=== PATIENT | male | born 2000 ===

== ENCOUNTER 2021-03-04 04:18 | Observation (INO) ==
[2021-03-04] MEDS ORDERED: SODIUM CHLORIDE 0.9% 1000ML 1,000 ML IV STA (04:44)
[2021-03-04] MEDS ORDERED: MoRPHine SULFATE 4 MG/ML 1 ML CARP\\VIAL IV STA ×2 (04:44→05:39)
[2021-03-04] MEDS ORDERED: ONDANSETRON INJ 2 MG/ML 2 ML VIAL IV STA (04:44)
[2021-03-04 05:27] LABS: Basophils # (auto) 0.02 K/uL (0-0.2); Basophils % (auto) 0.1 %; Eosinophils # (auto) 0.02 K/uL (0-0.5); Eosinophils % (auto) 0.1 %; Hematocrit (blood only) 42.4 % (42-52); Hemoglobin 14.7 g/dL (14.0-18.0); Immature Granulocytes # (auto) 0.05 K/uL (0.00-0.02); Immature Granulocytes % (auto) 0.3 %; Lymphocytes # (auto) 0.92 K/uL (1.2-3.4); Lymphocytes % (auto) 5.6 %; Mean Corpuscular Hemoglobin 28.8 pg (25-34); Mean Corpuscular Hgb Conc 34.7 g/dL (32-36); Mean Platelet Volume 11.2 fL (7.4-10.4); Monocytes # (auto) 0.99 K/uL (0.11-0.59); Neutrophils # (auto) 14.56 K/uL (1.4-6.5); Neutrophils % (auto) 87.9 %; Platelet Count 313 K/uL (130-400); RDW Coefficient of Variation 13.1 % (11.5-14.5); RDW Standard Deviation 39.7 fL (36.4-46.3); Red Blood Count 5.11 M/uL (4.7-6.1); White Blood Count 16.56 K/uL (4.8-10.8)
[2021-03-04 05:54] LABS: Albumin Level 4.5 gm/dl (3.4-5.0); BUN Creatinine Ratio 13.1 (10-20); Calcium 9.2 mg/dl (8.5-10.1); Creatinine Clr Calc Pharmacy 127.6 ml/min; Est GFR (African American) 147.1 ml/min; Est GFR (Non-African American) 126.9 ml/min; Potassium 3.2 mmol/L (3.5-5.1)
[2021-03-04 05:57] LABS: Albumin Globulin Ratio 1.5 (0.9-2); Bilirubin,Total 0.6 mg/dl (0.2-1); Globulin 3.1 gm/dl (2.5-4.0); Total Protein 7.6 gm/dl (6.4-8.2)
[2021-03-04] MEDS ORDERED: OPTIRAY 320 100ml IV ONE (07:17)
--- NOTE | 2021-03-04 07:18 | Emergency Department Note ---
ED Visit Note ED NOTE: Received this patient in signout from Earlene Casanova PA-C. Briefly patient is a 20-year-old male who presents the emergency department for evaluation of periumbilical/right lower quadrant abdominal pain. At change of shift, CT scan of the abdomen and pelvis with contrast was pending. Laboratory studies noted an elevated white count at 16,500 with left shift and bandemia. Potassium slightly low at 3.2, remaining electrolytes are within normal limits. Transaminases are not elevated. Lipase is within normal limits. Urine microscopy is unremarkable. Patient had good relief of his pain with IV morphine. CT scan of the abdomen and pelvis with IV and oral contrast notes the appendix to be dilated measuring 1.5 cm, fluid-filled with thickening of the wall and moderate periappendiceal inflammation. No free air or abscess. No evidence of bowel obstruction. CT scan findings were discussed with the patient. Covid swab was ordered. Consultation was placed with general surgery. Patient was reviewed with Nate Paige PA-C. Please refer to his surgical consultation for further information. Patient will go to the OR later this morning for appendectomy.
--- NOTE | 2021-03-04 07:26 | Emergency Department Note ---
History of Present Illness General Chief complaint: Abdominal Pain Stated complaint: SEVERE STOMACH PAIN Time Seen by Provider: 03/04/21 04:36 History of Present Illness Provider complaint: abdominal pain Maximum Pain Intensity: 6 This 20-year-old male patient presents to the emergency department today for evaluation of abdominal pain which began at approximately midnight. The patient states he has been having difficulty getting comfortable. The pain is assoc iated with nausea and vomiting. No diarrhea or constipation. No dysuria, urinary frequency, urinary hesitancy. He has had chills but no fever. Patient denies history of similar symptoms in the past. He denies of abdominal surgeries. Patient took some Pepto-Bismol but vomited it up. Past Med/Surg History Medical History No pertinent past medical history Social History Smoking Status: Never smoker Feels Safe at Home: Yes Review of Systems A total of 10 systems reviewed and were otherwise negative Physical Exam Vital Signs Vital Signs - 24 hr 03/04/21 04:21 03/04/21 05:00 03/04/21 07:03 Temperature 36.8 C Temperature Source Temporal Artery Scan Pulse Rate 62 58 L Pulse Rate [Apical] 82 Pulse Rhythm [Apical] Regular Pulse Strength [Apical] Normal Respiratory Rate 20 16 16 Respiratory Effort / Characteristics Non-Labored Spontaneous Respiratory Depth Normal Respiratory Pattern Regular Blood Pressure 128/65 Blood Pressure [Right Arm] 133/88 Blood Pressure Mean 86 Blood Pressure Mean [Right Arm] 103 Blood Pressure Position [Right Arm] Semi-fowlers Pulse Oximetry 99 98 98 Oxygen Delivery Method Room Air Room Air Room Air Sepsis Recent Fever Within 48 Hours No Sepsis New/Unexplained Change in Mental Status N/A Sepsis Action Taken by Nursing No Action Required VITALS: Vitals are noted on the nurse's note and reviewed by myself. Vital signs stable. GENERAL: This is a 20-year-old male, in no acute distress, nondiaphoretic, well- developed well-nourished. SKIN: The skin was without rashes, erythema, edema, or bruising. There is no tenting of the skin. Capillary refill less than 2 seconds. HEAD: Normocephalic atraumatic. EYES: Conjunctivae without injection, sclerae without icterus. NECK: Supple without nuchal rigidity. No lymphadenopathy. Cervical spine is nontender. No JVD. HEART: Regular rate and rhythm without murmurs gallops or rubs. LUNGS: Clear to auscultation bilaterally without wheezes, rales or rhonchi. No retractions or accessory muscle use. ABDOMEN: Positive bowel sounds x 4. Right lower quadrant tenderness to palpation over McBurney's point. Abdomen is otherwise soft, nontender, without masses or organomegaly. Hardy sign negative. No guarding or rebound tenderness. MUSCULOSKELETAL: No muscle atrophy, erythema, or edema noted. Full range of motion without joint tenderness in all extremities. No tenderness to palpation. Normal gait. Strength 5/5 throughout. NEURO: Patient was alert and oriented to person place and time. No focal neurological deficits. Course Course The patient was seen and evaluated as above. An order was placed for continuous cardiac monitoring. The monitor shows a normal sinus rhythm at a rate of 82 bpm. IV access obtained, labs drawn. Patient medicated with IV fluids, morphine, Zofran. Labs reviewed by myself. Patient continues to complain of pain. He was medicated with a second dose of IV morphine. Patient was signed out to Arely Mccarthy PA-C at shift change pending CT scan. Please see her dictation regarding final disposition. Administered Medications Discontinued Medications Sodium Chloride (Nss 1000ml) 1,000 mls @ 999 mls/hr IV .Q1H1M STA Stop: 03/04/21 05:44 Last Infusion: 03/04/21 06:20 Dose: 0 mls/hr Documented by: [id number] Admin: 03/04/21 05:19 Dose: 999 mls/hr Documented by: [id number] Ioversol (Optiray 320 100ml) 94 ml IV ONCE ONE Stop: 03/04/21 07:18 Last Admin: 03/04/21 07:17 Dose: 94 ml Documented by: [id number] Morphine Sulfate (Morphine Sulfate 4 Mg/Ml 1 Ml Carp\Vial) 4 mg IV NOW STA Stop: 03/04/21 04:45 Last Admin: 03/04/21 05:00 Dose: 4 mg Documented by: [id number] Morphine Sulfate (Morphine Sulfate 4 Mg/Ml 1 Ml Carp\Vial) 4 mg IV NOW STA Stop: 03/04/21 05:40 Last Admin: 03/04/21 05:48 Dose: 4 mg Documented by: [id number] Ondansetron HCl (Ondansetron Inj 2 Mg/Ml 2 Ml Vial) 4 mg IV NOW STA Stop: 03/04/21 04:45 Last Admin: 03/04/21 05:00 Dose: 4 mg Documented by: [id number] Medical Decision Making Differential Diagnosis Etiologies such as appendicitis, diverticulitis, obstruction, inflammatory bowel disease, renal colic, PUD, biliary pathology, pancreatitis, mesenteric ischemia, aortic pathology, infections, genitourinary, UTI, perforated viscus, as well as others were entertained. Medical Records Attestation: I reviewed the patient's medical records. Home Medications Current Medication List: was personally reviewed by me Laboratory Data Leukocytosis of 16,000. No anemia or thrombocytopenia. Renal, hepatic function and electrolytes without significant abnormality. Lipase is 83. Result diagrams: 03/04/21 05:00 03/04/21 05:00 Lab Results 03/04/21 03/04/21 Range/Units 05:00 05:00 WBC 16.56 H (4.8-10.8) K/uL RBC 5.11 (4.7-6.1) M/uL Hgb 14.7 (14.0-18.0) g/dL Hct 42.4 (42-52) % MCV 83.0 (80-100) fL MCH 28.8 (25-34) pg MCHC 34.7 (32-36) g/dL RDW Std Deviation 39.7 (36.4-46.3) fL RDW Coeff of Estrella 13.1 (11.5-14.5) % Plt Count 313 (130-400) K/uL MPV 11.2 H (7.4-10.4) fL Immature Gran % (Auto) 0.3 % Neut % (Auto) 87.9 % Lymph % (Auto) 5.6 % [place] % (Auto) 6.0 % Eos % (Auto) 0.1 % Baso % (Auto) 0.1 % Neut # (Auto) 14.56 H (1.4-6.5) K/uL Lymph # (Auto) 0.92 L (1.2-3.4) K/uL [place] # (Auto) 0.99 H (0.11-0.59) K/uL Eos # (Auto) 0.02 (0-0.5) K/uL Baso # (Auto) 0.02 (0-0.2) K/uL Immature Gran # (Auto) 0.05 H (0.00-0.02) K/uL Sodium 141 (136-145) mmol/L Potassium 3.2 L (3.5-5.1) mmol/L Chloride 107 (98-107) mmol/L Carbon Dioxide 30 (21-32) mmol/L Anion Gap 4.0 (3-11) BUN 11 (7-18) mg/dl Creatinine 0.84 (0.6-1.4) mg/dl Est Cr Clr Drug Dosing 127.6 ml/min Est GFR ( Amer) 147.1 ml/min Est GFR (Non-Af Amer) 126.9 ml/min BUN/Creatinine Ratio 13.1 (10-20) Glucose 127 H (70-99) mg/dl Calcium 9.2 (8.5-10.1) mg/dl Total Bilirubin 0.6 (0.2-1) mg/dl AST 14 L (15-37) U/L ALT 24 (12-78) U/L Alkaline Phosphatase 116 (45-117) U/L Total Protein 7.6 (6.4-8.2) gm/dl Albumin 4.5 (3.4-5.0) gm/dl Globulin 3.1 (2.5-4.0) gm/dl Albumin/Globulin Ratio 1.5 (0.9-2) Lipase 83 (73-393) U/L Blood Pressure Blood Pressure Findings: Normal blood pressure MDM Narrative This 20-year-old male patient presents to the emergency department today for evaluation of abdominal pain. The patient was found to have a leukocytosis. Patient was medicated with morphine, IV fluids, and Zofran. His symptoms did improve. He was signed out to Arely Mccarthy PA-C at shift change pending CT scan. Please see her dictation regarding final disposition and plan of this patient. The chart was completed utilizing [employer] voice recognition software. Grammatical errors, random word insertions, pronoun errors, and incomplete sentences are an occasional consequence of this system due to software limitations, ambient noise, and hardware issues. Any formal questions or ronit rns about the content, text, or information contained within the body of this dictation should be directly addressed to the provider for clarification. Impression & Plan Abdominal pain Discharge Plan Visit Data Chief Complaint: Abdominal Pain Stated Complaint: SEVERE STOMACH PAIN ED Provider: Amaya Be ED Midlevel Provider: Vitaliy Mccarthy Discharge Problem: Abdominal pain Patient Disposition: Still a Patient Forms Stand Alone Forms: [facility] Referrals Referrals: [facility] [Primary Care Provider] -
--- NOTE | 2021-03-04 08:02 | CT Scan Report ---
CT OF THE ABDOMEN AND PELVIS WITH CONTRAST CLINICAL HISTORY: periumbilical, RLQ pain COMPARISON STUDY: None. TECHNIQUE: Following IV administration of 94 mL of Optiray, axial images of the abdomen and pelvis we re obtained from the lung bases to the proximal femurs. Images were reviewed in the axial, sagittal, and coronal planes. IV contrast was administered without complication. Automated exposure control wa s utilized for the study. A dose lowering technique was utilized adhering to the principles of ALARA . Oral contrast was administered. CT DOSE: 269.18 mGy.cm FINDINGS: Lung bases are unremarkable. No pneumatosis, free air or portal venous gas is present. The liver, spleen, adrenal glands, kidneys and pancreas are normal. There is no hydronephrosis. Excreted contrast within the collecting systems and ureters decreases sensitivity for detection of urinary catina culi. There is no biliary or pancreatic ductal dilatation. There is no evidence for a bowel obstructi on. The appendix is dilated, measuring 1.5 cm in caliber. The appendix is fluid-filled. The wall is t hickened. There is moderate periappendiceal inflammation. No free air or abscess is present. There is trace fluid within the pelvis. There is no lymphadenopathy. Major vasculature is patent. IMPRESSION: 1. Findings consistent with acute appendicitis. No free air or abscess. 2. Trace fluid within the pelvis. ACT 112: Negative or not required by law. Electronically signed by: Matt Montalvo M.D. 03/04/2021 8:00 AM
[2021-03-04 08:23] LABS: Appearance Urine Clear (Clear); Bilirubin Urine Negative (Negative); Blood Urine Negative (Negative); Color Urine Yellow; Glucose Urine UA Negative (Negative); Ketones Urine Negative (Negative); Leukocyte Esterase Urine Negative (Negative); Nitrite Urine Negative (Negative); Protein Urine Negative (Negative); Specific Gravity Urine > 1.045 (1.000-1.030); Urobilinogen Urine Negative (Negative); pH Urine 6.5 (4.5-7.5)
[2021-03-04] MEDS ORDERED: cefOXitin 2,000 MG/60 ML BAG IV STA (08:32)
--- NOTE | 2021-03-04 08:45 | History & Physical Report ---
Date of Service March 04, 2021 Assessment & Plan (1) Acute appendicitis: Plan: Will plan for laparoscopic appendectomy this morning. Mefoxin was ordered in ED. Dr. Ordonez did see the patient in the emergency room and his findings are consistent with acute appendicitis I discussed with the patient and his mother the operation and need for hospitalization for 1 to 2 days We will proceed with laparoscopic appendectomy possible open as soon as possible History of Present Illness Primary Care Provider: [facility] 20 y/o male [employer] student with generalized abdominal pain that began yesterday afternoon became more sever around midnight. Localized now to RLQ. Some nausea after taking Pepto-Bismol. Had chills, no fever. Allergies Allergy/AdvReac Type Severity Reaction Status Date / Time No Known Allergies Allergy Verified 03/04/21 08:20 Past Med/Surg History Medical History No pertinent past medical history Surgical History No history of previous surgery Social History Smoking Status: Never smoker Feels Safe at Home: Yes Review of Systems Constitutional: + chills; no fever and no anorexia Respiratory: no cough and no dyspnea Gastrointestinal: + abdominal pain and + nausea; no vomiting Physical Exam Constitutional: WD/WN, vitals as above Respiratory: normal respiratory effort, lungs clear to auscultation Cardiovascular: RRR, no murmur, no edema Gastrointestinal (Abdomen): Inspection/Auscultation: abdomen normal to inspection Percussion/Palpation: + abdomen tender (localized to RLQ) and abdomen soft; no guarding Skin: no rashes, warm and dry Results & Data Results & Data ([facility]) Vital Signs (Past 12 Hours) Vital Signs Temp Pulse Pulse Resp BP BP Pulse Ox 03/04/21 08:18 78 15 143/90 H 99 03/04/21 07:03 82 16 133/88 98 03/04/21 06:42 72 23 133/88 99 03/04/21 05:06 62 21 141/85 H 03/04/21 05:00 58 L 16 98 03/04/21 04:21 36.8 C 62 20 128/65 99
[2021-03-04] MEDS ORDERED: fentaNYL citrate 100 MCG/2 ML VIAL ONE ×2 (08:57→10:46)
[2021-03-04] MEDS ORDERED: DEXAMETHASONE SOD INJ 4 MG/ML VIAL ONE (08:57)
[2021-03-04] MEDS ORDERED: PROPOFOL IV EMULSION 10 MG/ML 20 ML VIAL IV ONE ×2 (08:57→09:23)
[2021-03-04] MEDS ORDERED: ONDANSETRON INJ 2 MG/ML 2 ML VIAL ONE (08:57)
[2021-03-04] MEDS ORDERED: BUPIVACAINE 0.5 % 5 MG/1 ML MPF 30ML VIAL ONE (09:03)
[2021-03-04] MEDS ORDERED: MIDAZOLAM HCL 1 MG/ML 2ML VIAL ONE (09:23)
--- NOTE | 2021-03-04 10:28 | Anesthesiology Consultation ---
Date of Service March 04, 2021 Assessment & Plan Chart Review Chart Review: Acceptable Risk for Surgery Consults Requested none History Surgery Operation Date: 03/04/21 09:00 Proposed Procedures p Laparoscopic Appendectomy - Gerry Gambino MD, FACS Height/Weight Height: 5 ft 7 in Weight: 63.8 kg Allergies Allergy/AdvReac Type Severity Reaction Status Date / Time No Known Allergies Allergy Verified 03/04/21 08:20 NPO Date Last Intake of Fluids: 03/04/21 Time Last Intake of Fluids: 05:00 Last Intake of Fluids Comment: Glass of water Date Last Intake of Solids: 03/03/21 Time Last Intake of Solids: 22:00 Past Medical History Medical History No pertinent past medical history Past Surgical History Surgical History No history of previous surgery Social History Smoking Status: Never smoker Physical Exam Vital Signs Last Vital Signs Temp 36.8 C 03/04/21 04:21 Pulse 120 H 03/04/21 10:11 Resp 22 03/04/21 10:11 BP 136/67 03/04/21 10:11 Pulse Ox 98 03/04/21 10:11 Testing Laboratory Results 03/04/21 05:00 03/04/21 05:00 Urine Color Yellow 03/04/21 08:19 Urine Appearance Clear (Clear) 03/04/21 08:19 Urine pH 6.5 (4.5-7.5) 03/04/21 08:19 Ur Specific [place] > 1.045 (1.000-1.030) H 03/04/21 08:19 Urine Protein Negative (Negative) 03/04/21 08:19 Urine Glucose (UA) Negative (Negative) 03/04/21 08:19 Urine Ketones Negative (Negative) 03/04/21 08:19 Urine Nitrite Negative (Negative) 03/04/21 08:19 Ur Leukocyte Esterase Negative (Negative) 03/04/21 08:19
[2021-03-04] MEDS ORDERED: ONDANSETRON INJ 2 MG/ML 2 ML VIAL IV PRN ×2 (10:29→11:16)
[2021-03-04] MEDS ORDERED: ATROPINE SULFATE 0.1 MG/ML 10ML SYR IV PRN (10:29)
[2021-03-04] MEDS ORDERED: fentaNYL citrate 100 MCG/2 ML VIAL IV PRN (10:29)
[2021-03-04] MEDS ORDERED: ePHEDrine sulfate 50 MG/ML AMP IV PRN (10:29)
[2021-03-04] MEDS ORDERED: HYDROmorphone INJ 2 MG/ML SYR/VIAL IV PRN (10:29)
[2021-03-04] MEDS ORDERED: NEOSTIGMINE METHYLSULFATE 1 MG/ML 10ML VIAL ONE (10:42)
[2021-03-04] MEDS ORDERED: GLYCOPYRROLATE 0.2 MG/ML VIAL ONE (10:42)
[2021-03-04] MEDS ORDERED: PHENYLEPHRINE HCL 10 MG/ML VIAL ONE (10:54)
--- NOTE | 2021-03-04 11:11 | Post Operative Brief Note ---
PG Immediate Post Op with CF Date of Surgery March 04, 2021 Pre & Post Diagnosis Operation Date: 03/04/21 09:00 Pre-Op Diagnosis: Appendicitis Post-Op Diagnosis: Appendicitis I identified the patient and participated in the time-out.: Yes Procedure Operation Date: 03/04/21 09:00 Actual Procedures p Laparoscopic Appendectomy(Not Applicable) - Gerry Gambino MD, FACS Surgeon Gerry Gambino MD, FACS Casing Sewer Arnaud Paige Estimated Blood Loss 5 Findings Consistent with Post-Op Diagnosis Acute situs Specimens Specimen Description: A. appendix
[2021-03-04] MEDS ORDERED: PROMETHAZINE HCL 25 MG in SODIUM CHLORIDE 0.9% 50 ML IV PRN (11:16)
[2021-03-04] MEDS ORDERED: IBUPROFEN 600 MG TAB PO PRN (11:16)
[2021-03-04] MEDS ORDERED: oxyCODONE HCL IR 5 MG TAB (IMMEDIATE RELEASE) PO PRN (11:16)
[2021-03-04] MEDS ORDERED: PROMETHAZINE HCL 12.5 MG in SODIUM CHLORIDE 0.9% 50 ML IV PRN (11:16)
[2021-03-04] MEDS ORDERED: HYDROmorphone INJ 1 MG/ML SYRINGE IV PRN (11:16)
[2021-03-04] MEDS ORDERED: HYDROmorphone INJ 0.5 MG/0.5 ML SYR IV PRN (11:16)
[2021-03-04] MEDS ORDERED: ACETAMINOPHEN 1,000 MG/100 ML VIAL IV ONE (11:16)
--- NOTE | 2021-03-04 12:21 | Anesthesiology Progress Note ---
Date of Service March 04, 2021 Anesthesia Post Procedure Vital Signs Vital Signs: Temp Pulse Pulse Resp BP BP Pulse Ox 03/04/21 12:10 78 19 126/73 97 03/04/21 12:00 36.2 C L 76 21 126/77 98 03/04/21 11:50 82 19 128/72 100 03/04/21 11:40 85 20 124/68 100 03/04/21 11:30 36.5 C 122 H 22 132/113 H 95 03/04/21 10:11 120 H 22 136/67 98 03/04/21 09:00 71 18 148/79 H 99 03/04/21 08:18 78 15 143/90 H 99 03/04/21 07:03 82 16 133/88 98 03/04/21 06:42 72 23 133/88 99 03/04/21 05:06 62 21 141/85 H 03/04/21 05:00 58 L 16 98 03/04/21 04:21 36.8 C 62 20 128/65 99 Pain Intensity Right Lower Abdomen: Pain Intensity: 5 Transfer of Care Handoff Completed per policy Notes Mental Status: alert / awake / arousable and participated in evaluation Patient Amnestic to Procedure: Yes Nausea / Vomiting: adequately controlled Pain: adequately controlled Airway Patency, RR, SpO2: stable & adequate BP & HR: stable & adequate Hydration State: stable & adequate Anesthetic Complications: no major complications apparent
--- NOTE | 2021-03-04 12:35 | Operative Report (OR) ---
DATE OF OPERATION: 03/04/2021. NAME OF OPERATION: Laparoscopic appendectomy. PREOPERATIVE DIAGNOSIS: Acute appendicitis. POSTOPERATIVE DIAGNOSIS: Acute appendicitis. STAFF SURGEON: Gerry Gambino MD. CATERING SERVER: Donavan Paige PA-C. ANESTHESIA: General. DESCRIPTION OF PROCEDURE: The patient was brought in the operating room and placed on the operating table in supine position. Pneumatic stockings and orogastric tube were placed. My staffing assistant helped with prepping, draping, removal of appendix and closure of the wounds. His abdomen was prepped and d raped in the usual fashion. A 0.5% plain Marcaine was used to anesthetize all incisions. Incision w as made above the umbilicus carrying dissection down to the fascia, placing a Veress needle producing pneumoperitoneum. The 5 mm port was placed at this level. Under visualization, a second 5 mm port was placed in the suprapubic area. The appendix was visualized. A 12 mm port was placed in the left lower quadrant. The appendix was very inflamed and thickened. There were adhesions in the right lo wer quadrant. Some of them not associated with the appendix. There was no other significant abnorma lity. The mesoappendix was dissected free and then transected using Endo-QUIANA stapler and then the ba se of the appendix transected using the Endo-QUIANA. The appendix was placed in an Endobag and then rem alexandra through the 12 mm port site. Irrigation and hemostasis were obtained. All ports were removed. A 12 mm site closed using 0 Vicryl for the fascia, skin reapproximated using subcuticular 4-0 Monocr yl with Steri-Strips placed in the left lower quadrant. Dermabond placed at the other sites. The jerome ordonez was transferred to recovery room in stable condition. Job ID: [id number]
--- NOTE | 2021-03-05 07:27 | Discharge Summary (DS) ---
DATE OF DISCHARGE: 03/05/2021. PRINCIPAL DIAGNOSIS: Acute appendicitis. PROCEDURE: The patient underwent laparoscopic appendectomy. HISTORY OF PRESENT ILLNESS AND HOSPITAL COURSE: The patient is a 20-year-old male presenting to the Emergency Room with acute appendicitis. He was taken to the operating room on 03/04/2021 where he un derwent laparoscopic appendectomy. He has done very well and was felt [facility] We will see him in 1-2 weeks in the office. He will be kept on p.o. pain medica tions and some antibiotics. Job ID: [id number]
--- NOTE | 2021-03-05 20:03 | Electrocardiogram Report ---
Test Reason : Blood Pressure : / mmHG Vent. Rate : 062 BPM Atrial Rate : 062 BPM P-R Int : 134 ms QRS Dur : 082 ms QT Int : 438 ms P-R-T Axes : 047 081 069 degrees QTc Int : 444 ms Sinus rhythm with marked sinus arrhythmia Precordial ST abnormality Borderline ECG No previous ECGs available Confirmed by Zeb Gabrer ([id number]) on 03/05/2021 8:02:38 PM Referred By: REFERRED SELF Confirmed By:Zeb Garber
== END 2021-03-05 09:47 | disposition home or self-care (01) ==
LOC: ED 04:18 → OR 10:10 → 3E 10:11 → INTOOBSV 11:31
DX: K35.80 Unspecified acute appendicitis